=== PATIENT | female | born 1945 | race Caucasian/White ===

== ENCOUNTER → 2018-03-10 10:04 | Outpatient (CLI) | payer MEDICARE, OTHER, SELFPAY ==
[2018-03-10 12:16] LABS: Synovial Fld Mononuclear WBC % 83.5 %; Synovial Fld Polynuclear WBC # 0.133 10^3/ul; Synovial Fld Polynuclear WBC % 16.5 %
[2018-03-10 12:20] LABS: AUTO B FLUID DILUENT BKGD CT WBC <0.1 RBC <0.01 (W<.1,R<.01); Viscosity / Synovial Fluid Sl. Viscous (HIGH)
[2018-03-10 12:21] LABS: Appearance /Synovial Fluid Sl Cl (CLEAR); Color / Synovial Fluid Pink (Pale Yellow)
[2018-03-10 13:46] LABS: Lymph 70 %; Monocyte /Synovial Fluid 7 %; Neutrophil 20 % (0-25); Other Cell /Synovial Fluid 3 %
[2018-03-10 15:16] LABS: Pathologist Comment Reviewed
== END ==
PROVIDERS: Family Provider Family Medicine; PCP Family Medicine; Visit Provider Specialist
DX: Z96.611 Presence of right artificial shoulder joint (principal)
CPT/HCPCS: 87015; 87070; 87075; 87101; 87116; 87205; 87206; 89050; 89051